=== PATIENT | male | born 1960 | race Caucasian/White ===

== ENCOUNTER 2016-06-11 12:52 | Emergency (ER) | payer SELFPAY ==
[2016-06-11 12:58] VITALS: BP 120/79; PULSE 63; RESP 24; TEMP 97.4; O2SAT 96
--- NOTE | 2016-06-11 13:04 | PD ---
HPI Chief Complaint: chest pain Time Seen by Provider: 13:03 Travel History International Travel<30 days: No Contact w/Intl Traveler<30days: No Traveled to known affect area: No History of Present Illness HPI 56-year-old male with history of CAD, hypertension, stents placement, triple bypass surgery, presents to the emergency department for evaluation of worsening chest pain. Patient was seen and evaluated approximately a week ago per his report. States a stress test this and at that time and was told that they did not see anything. He states that he continues to have this pain. Today it has been almost constant in the left upper chest radiating to his left upper extremity at times with some nausea. No recent illnesses, fever, or chills. No episodes of lightheadedness or diaphoresis. No other symptoms to report. PFSH Past Medical History Cardiac Catheterization: Yes Cardiovascular Problems: Yes Social History Alcohol Use: No Tobacco Use: No Substance Use: No Allergies-Medications (Allergen,Severity, Reaction): Coded Allergies: No Known Allergies (Unverified , 06/11/16) Reported Meds & Prescriptions Reported Meds & Active Scripts Active Reported Buspirone (Buspirone HCl) 10 Mg Tab 10 Mg PO BID Lovastatin 40 Mg Tab 40 Mg PO HS Lisinopril 10 Mg Tab 10 Mg PO DAILY Isosorbide Mononitrate ER (Isosorbide Mononitrate) 30 Mg Srinivasa 30 Mg PO DAILY Furosemide 40 Mg Tab 40 Mg PO DAILY Clopidogrel (Clopidogrel Bisulfate) 75 Mg Tab 75 Mg PO DAILY Aspirin 81 Mg Chew 81 Mg CHEW DAILY Review of Systems Except as stated in HPI: all other systems reviewed are Neg Physical Exam Narrative GENERAL: Well-nourished male patient in no acute distress SKIN: Warm and dry. HEAD: Atraumatic. Normocephalic. EYES: Pupils equal and round. No scleral icterus. No injection or drainage. ENT: No nasal bleeding or discharge. Mucous membranes pink and moist. NECK: Trachea midline. No JVD. CARDIOVASCULAR: Regular rate and rhythm. No murmur appreciated. RESPIRATORY: No accessory muscle use. Clear to auscultation. Breath sounds equal bilaterally. GASTROINTESTINAL: Abdomen soft, non-tender, nondistended. Hepatic and splenic margins not palpable. MUSCULOSKELETAL: No obvious deformities. No clubbing. No cyanosis. No edema. NEUROLOGICAL: Awake and alert. No obvious cranial nerve deficits. Motor grossly within normal limits. Normal speech. PSYCHIATRIC: Appropriate mood and affect; insight and judgment normal. Data Data Last Documented VS Vital Signs Date Time Temp Pulse Resp B/P Pulse Ox O2 Delivery O2 Flow Rate FiO2 06/11/16 13:24 65 18 112/65 97 Room Air 06/11/16 12:58 97.4 Orders Electrocardiogram (06/11/16 ) Basic Metabolic Panel (Bmp) (06/11/16 13:01) Ckmb (Isoenzyme) Profile (06/11/16 13:01) Complete Blood Count With Diff (06/11/16 13:01) Magnesium (Mg) (06/11/16 13:01) Prothrombin Time / Inr (Pt) (06/11/16 13:01) Act Partial Throm Time (Ptt) (06/11/16 13:01) Troponin I (06/11/16 13:01) Lipase (06/11/16 13:01) Chest, Single Ap (06/11/16 13:01) D-Dimer (06/11/16 13:21) Nitroglycerin Sl (Nitrostat Sl) (06/11/16 13:30) Aspirin (Aspirin) (06/11/16 13:30) CKMB (06/11/16 13:25) CKMB% (06/11/16 13:25) Labs Laboratory Tests Test 06/11/16 13:25 White Blood Count 7.5 TH/MM3 Red Blood Count 5.08 MIL/MM3 Hemoglobin 15.0 GM/DL Hematocrit 44.0 % Mean Corpuscular Volume 86.6 FL Mean Corpuscular Hemoglobin 29.4 PG Mean Corpuscular Hemoglobin 34.0 % Concent Red Cell Distribution Width 14.2 % Platelet Count 224 TH/MM3 Mean Platelet Volume 7.5 FL Neutrophils (%) (Auto) 63.4 % Lymphocytes (%) (Auto) 29.7 % Monocytes (%) (Auto) 3.8 % Eosinophils (%) (Auto) 2.6 % Basophils (%) (Auto) 0.5 % Neutrophils # (Auto) 4.8 TH/MM3 Lymphocytes # (Auto) 2.2 TH/MM3 Monocytes # (Auto) 0.3 TH/MM3 Eosinophils # (Auto) 0.2 TH/MM3 Basophils # (Auto) 0.0 TH/MM3 CBC Comment DIFF FINAL Differential Comment Prothrombin Time 10.6 SEC Prothromb Time International 1.0 RATIO Ratio Activated Partial 26.0 SEC Thromboplast Time D-Dimer Quantitative (PE/DVT) 0.29 MG/L FEU Sodium Level 143 MEQ/L Potassium Level 3.4 MEQ/L Chloride Level 108 MEQ/L Carbon Dioxide Level 23.9 MEQ/L Anion Gap 11 MEQ/L Blood Urea Nitrogen 12 MG/DL Creatinine 1.10 MG/DL Estimat Glomerular Filtration 70 ML/MIN Rate Random Glucose 150 MG/DL Calcium Level 8.4 MG/DL Magnesium Level 1.9 MG/DL Total Creatine Kinase 126 U/L Creatine Kinase MB 1.1 NG/ML Troponin I LESS THAN 0.02 NG/ML Lipase 89 U/L MDM Medical Decision Making Medical Screen Exam Complete: Yes Emergency Medical Condition: Yes Medical Record Reviewed: Yes Differential Diagnosis ACS versus chest wall pain versus pleuritic pain versus costochondritis Narrative Course 56-year-old male presents to emergency department for evaluation of chest pain. Workup initiated in triage. Once a medical bed becomes available, patient will be transferred and care was seen by that provider. Condition: Stable Merced Jones Jun 11, 2016 13:03
--- NOTE | 2016-06-11 13:18 | RADRPT ---
EXAM DATE/TIME: 06/11/2016 12:58 [facility] COMPARISON: No previous studies available for comparison. INDICATIONS : Chest pain and short of breath MEDICAL HISTORY : Cardiovascular disease. SURGICAL HISTORY : CABG. ENCOUNTER: Initial ACUITY: 1 day PAIN SCORE: 6/10 LOCATION: Bilateral chest FINDINGS: A single view of the chest demonstrates the lungs to be symmetrically aerated without evidence of mas s, infiltrate or effusion. Sternal wires from previous median sternotomy are noted. The cardiomedia stinal contours are unremarkable. Osseous structures are intact. CONCLUSION: No acute disease. Rico Hart MD FACR on June 11, 2016 at 13:16 Board Certified Radiologist. This report was verified electronically.
[2016-06-11 13:24] VITALS: BP 112/65; PULSE 65; RESP 18; O2SAT 97
[2016-06-11] MEDS ORDERED: ASPI81CH CHEW (13:27)
[2016-06-11] MEDS ORDERED: BUSP10TA PO (13:27)
[2016-06-11] MEDS ORDERED: LOVA40TA PO (13:27)
[2016-06-11] MEDS ORDERED: CLOP75TA PO (13:27)
[2016-06-11] MEDS ORDERED: ISOS30TA3 PO (13:27)
[2016-06-11] MEDS ORDERED: LISI10TA3 PO (13:27)
[2016-06-11] MEDS ORDERED: FURO40TA PO (13:27)
[2016-06-11] MEDS ORDERED: ASPIRIN 325 MG TAB PO ONE (13:30)
[2016-06-11] MEDS ORDERED: NITROGLYCERIN 0.4 MG SL 25 TABS/BTL SL ONE (13:30)
[2016-06-11 13:39] LABS: AUTOMATED NEUTROPHIL # 4.8 TH/MM3 (1.8-7.7); BASOPHIL % 0.5 % (0.0-2.0); EOSINOPHIL # 0.2 TH/MM3 (0-0.4); EOSINOPHIL % 2.6 % (0.0-4.0); HEMO FLAGS DIFF FINAL; LYMPH % 29.7 % (9.0-44.0); LYMPHOCYTE # 2.2 TH/MM3 (1.0-4.8); MEAN CELL VOLUME 86.6 FL (80.0-100.0); MEAN CORPUSCULAR HEMOGLOBIN 29.4 PG (27.0-34.0); MONO % 3.8 % (0.0-8.0); NEUT % 63.4 % (16.0-70.0); PLATELET COUNT 224 TH/MM3 (150-450); RED BLOOD COUNT 5.08 MIL/MM3 (4.50-5.90); RED CELL DISTRIBUTION WIDTH 14.2 % (11.6-17.2); WHITE BLOOD COUNT 7.5 TH/MM3 (4.0-11.0)
[2016-06-11 13:50] LABS: PROTHROMBIN TIME - PATIENT 10.6 SEC (9.8-11.6)
[2016-06-11 13:52] LABS: ANION GAP 11 MEQ/L (5-15); BICARBONATE 23.9 MEQ/L (21.0-32.0); BLOOD UREA NITROGEN 12 MG/DL (7-18); CHLORIDE 108 MEQ/L (98-107); GLOMERULAR FILTRATION RATE 70 ML/MIN (>89); MAGNESIUM 1.9 MG/DL (1.5-2.5); POTASSIUM 3.4 MEQ/L (3.5-5.1); SODIUM (NA) 143 MEQ/L (136-145)
[2016-06-11 13:57] LABS: CREATINE KINASE 126 U/L (39-308)
[2016-06-11 14:09] LABS: CKMB 1.1 NG/ML (0.5-3.6)
--- NOTE | 2016-06-11 14:55 | PD ---
Data Data Last Documented VS Vital Signs Date Time Temp Pulse Resp B/P Pulse Ox O2 Delivery O2 Flow Rate FiO2 06/11/16 13:24 65 18 112/65 97 Room Air 06/11/16 12:58 97.4 Orders Electrocardiogram (06/11/16 ) Basic Metabolic Panel (Bmp) (06/11/16 13:01) Ckmb (Isoenzyme) Profile (06/11/16 13:01) Complete Blood Count With Diff (06/11/16 13:01) Magnesium (Mg) (06/11/16 13:01) Prothrombin Time / Inr (Pt) (06/11/16 13:01) Act Partial Throm Time (Ptt) (06/11/16 13:01) Troponin I (06/11/16 13:01) Lipase (06/11/16 13:01) Chest, Single Ap (06/11/16 13:01) D-Dimer (06/11/16 13:21) Nitroglycerin Sl (Nitrostat Sl) (06/11/16 13:30) Aspirin (Aspirin) (06/11/16 13:30) CKMB (06/11/16 13:25) CKMB% (06/11/16 13:25) Labs Laboratory Tests Test 06/11/16 13:25 White Blood Count 7.5 TH/MM3 Red Blood Count 5.08 MIL/MM3 Hemoglobin 15.0 GM/DL Hematocrit 44.0 % Mean Corpuscular Volume 86.6 FL Mean Corpuscular Hemoglobin 29.4 PG Mean Corpuscular Hemoglobin 34.0 % Concent Red Cell Distribution Width 14.2 % Platelet Count 224 TH/MM3 Mean Platelet Volume 7.5 FL Neutrophils (%) (Auto) 63.4 % Lymphocytes (%) (Auto) 29.7 % Monocytes (%) (Auto) 3.8 % Eosinophils (%) (Auto) 2.6 % Basophils (%) (Auto) 0.5 % Neutrophils # (Auto) 4.8 TH/MM3 Lymphocytes # (Auto) 2.2 TH/MM3 Monocytes # (Auto) 0.3 TH/MM3 Eosinophils # (Auto) 0.2 TH/MM3 Basophils # (Auto) 0.0 TH/MM3 CBC Comment DIFF FINAL Differential Comment Prothrombin Time 10.6 SEC Prothromb Time International 1.0 RATIO Ratio Activated Partial 26.0 SEC Thromboplast Time D-Dimer Quantitative (PE/DVT) 0.29 MG/L FEU Sodium Level 143 MEQ/L Potassium Level 3.4 MEQ/L Chloride Level 108 MEQ/L Carbon Dioxide Level 23.9 MEQ/L Anion Gap 11 MEQ/L Blood Urea Nitrogen 12 MG/DL Creatinine 1.10 MG/DL Estimat Glomerular Filtration 70 ML/MIN Rate Random Glucose 150 MG/DL Calcium Level 8.4 MG/DL Magnesium Level 1.9 MG/DL Total Creatine Kinase 126 U/L Creatine Kinase MB 1.1 NG/ML Troponin I LESS THAN 0.02 NG/ML Lipase 89 U/L MDM Supervised Visit with JULIETTE: Yes Narrative Course I, Dr. Wilson, have reviewed the advance practice practioner's documentation and am in agreement, met with the patient face to face, made the diagnosis, and the medical decision making was done by me. *My assessment and Findings: 56-year-old male with history of CAD with previous three-vessel CABG approximately 2 years ago on the HTN here with complaint of chest pain. Patient has intermittent left-sided chest pain that radiates to the left upper extremity, sharp and squeezing with some nausea. Chronic shortness of breath but states that this is not any worse with exertion than he typically is. No new peripheral edema. Patient has mild pain at this time. Patient moving from [place]. He was in [place] approximately a week ago when he states he had a stress test and cardiac catheterization that were unremarkable and he was discharged home. Patient is in no acute distress on exam, very poor dentition. He has reproducible tenderness to palpation of the left chest wall without ecchymosis, subcutaneous emphysema, crepitus. Regular rate and rhythm, clear to auscultation without peripheral edema. Differential includes atypical chest pain, ACS, GERD, and less likely PE or dissection. Patient's 12-lead EKG is unremarkable, laboratory workup including troponin and d-dimer were negative. Chest x-ray unremarkable. Records were obtained from [facility] in [place] showing abnormal stress test but a cardiac catheterization on 05/31/16 showing LV systolic function normal with EF of 55%. Normal ascending or aorta. Left main with minor luminal irregularities, LAD with minor luminal irregularities. First diagonal with small diffuse disease, right coronary with previous PTCA in the mid RCA patent. Distal RCA with a 40% in-stent restenosis of previous stent. Previous vein grafts normal. Cardiology recommended medical management. I do not feel the patient needs further evaluation here in the emergency department and needs to follow with cardiology as an outpatient to further manage his chest pain medically. Condition: Stable Rubi Wilson MD Jun 11, 2016 14:55
[2016-06-11 16:00] VITALS: BP 118/64; PULSE 68; RESP 16; O2SAT 99
[2016-06-11] MEDS ORDERED: METO25TA3 PO (16:35)
--- NOTE | 2016-06-11 16:40 | PD ---
Physical Exam Date Seen by Provider: Jun 11, 2016 Time Seen by Provider: 16:35 Narrative 56-year-old male that presents to the ED for evaluation of chest pain. Patient was seen previously by Merced ORTIZ. Please refer to her note. Case was signed out to me pending labs and imaging. Medical records were obtained from [facility] where patient was just admitted last week and had a stress test which was abnormal but had a catheter essentially showed no sign of acute . Per cardiology from the hospital the recommended medical treatment and follow-up outpatient. They did not recommend any stenting at the time with minimal disease. Data Data Last Documented VS Vital Signs Date Time Temp Pulse Resp B/P Pulse Ox O2 Delivery O2 Flow Rate FiO2 06/11/16 13:24 65 18 112/65 97 Room Air 06/11/16 12:58 97.4 Orders Electrocardiogram (06/11/16 ) Basic Metabolic Panel (Bmp) (06/11/16 13:01) Ckmb (Isoenzyme) Profile (06/11/16 13:01) Complete Blood Count With Diff (06/11/16 13:01) Magnesium (Mg) (06/11/16 13:01) Prothrombin Time / Inr (Pt) (06/11/16 13:01) Act Partial Throm Time (Ptt) (06/11/16 13:01) Troponin I (06/11/16 13:01) Lipase (06/11/16 13:01) Chest, Single Ap (06/11/16 13:01) D-Dimer (06/11/16 13:21) Nitroglycerin Sl (Nitrostat Sl) (06/11/16 13:30) Aspirin (Aspirin) (06/11/16 13:30) CKMB (06/11/16 13:25) CKMB% (06/11/16 13:25) Labs Laboratory Tests Test 06/11/16 13:25 White Blood Count 7.5 TH/MM3 Red Blood Count 5.08 MIL/MM3 Hemoglobin 15.0 GM/DL Hematocrit 44.0 % Mean Corpuscular Volume 86.6 FL Mean Corpuscular Hemoglobin 29.4 PG Mean Corpuscular Hemoglobin 34.0 % Concent Red Cell Distribution Width 14.2 % Platelet Count 224 TH/MM3 Mean Platelet Volume 7.5 FL Neutrophils (%) (Auto) 63.4 % Lymphocytes (%) (Auto) 29.7 % Monocytes (%) (Auto) 3.8 % Eosinophils (%) (Auto) 2.6 % Basophils (%) (Auto) 0.5 % Neutrophils # (Auto) 4.8 TH/MM3 Lymphocytes # (Auto) 2.2 TH/MM3 Monocytes # (Auto) 0.3 TH/MM3 Eosinophils # (Auto) 0.2 TH/MM3 Basophils # (Auto) 0.0 TH/MM3 CBC Comment DIFF FINAL Differential Comment Prothrombin Time 10.6 SEC Prothromb Time International 1.0 RATIO Ratio Activated Partial 26.0 SEC Thromboplast Time D-Dimer Quantitative (PE/DVT) 0.29 MG/L FEU Sodium Level 143 MEQ/L Potassium Level 3.4 MEQ/L Chloride Level 108 MEQ/L Carbon Dioxide Level 23.9 MEQ/L Anion Gap 11 MEQ/L Blood Urea Nitrogen 12 MG/DL Creatinine 1.10 MG/DL Estimat Glomerular Filtration 70 ML/MIN Rate Random Glucose 150 MG/DL Calcium Level 8.4 MG/DL Magnesium Level 1.9 MG/DL Total Creatine Kinase 126 U/L Creatine Kinase MB 1.1 NG/ML Troponin I LESS THAN 0.02 NG/ML Lipase 89 U/L [facility] Medical Record Reviewed: Yes Supervised Visit with JULIETTE: No Interpretation(s) CBC & BMP Diagram 06/11/16 13:25 Troponin and CK-MB negative. Coags within normal limits. D-dimer negative. EKG shows sinus rhythm with no sign of acute ischemia or arrhythmia read by me and attending. Chest x-ray negative for acute disease Differential Diagnosis Chest pain versus atypical chest pain versus CAD versus PE Narrative Course 56-year-old male that presents to the ED for evaluation of chest pain. Patient was properly examined and was found to have signs and symptoms consistent with chest pain. Concerning for cardiac chest pain. Patient he just had a stress test as well as psych heart Per patient done in [facility] in [place]. We got medical records from the facility and apparently patient had a With no need for stenting. Arteries were patent. My attending and I evaluated the records as well as the laboratory findings and we do not recommend any admission as patient does have a heart catheter last week that was essentially unremarkable. Recommendation at that time was for medical management. Patient was reassured. Patient likely having a typical chest pain. Patient agrees to follow-up outpatient. Patient was given a prescription for metoprolol which apparently was prescribed to him at the different facility but per patient he is not taking at this time. See ED worsening symptoms. Diagnosis Primary Impression: Chest pain in adult Patient Instructions: General Instructions Additional Instruction: Follow up with medical physiologist. Your labs and imaging here were essentially unremarkable. We reviewed your medical records from pervious hospitalization and your coronary arteries were found to be patent at that time. See ED worsening symptoms. Continue taking medications as prescribed. Med/Other Pt SpecificInfo: Prescription(s) given Scripts Metoprolol Tartrate 25 Mg Tab12.5 Mg PO BID #60 TAB Ref 0 Prov:Rubi Wilson MD 06/11/16 Disposition: 01 DISCHARGE HOME Condition: Stable Cortes Manley Jun 11, 2016 16:40
--- NOTE | 2016-06-12 18:19 | EKG ---
Date Performed: 06/11/2016 Time Performed: 13:27:57 PTAGE: 56 years EKG: Sinus rhythm NORMAL ECG NO PREVIOUS TRACING DOCTOR: Guzman Kilgore Interpretating Date/Time 06/12/2016 18:13:45
== END 2016-06-11 17:15 | disposition home or self-care (01) ==
LOC: NEPE 12:52
DX: R07.9 Chest pain, unspecified (principal); I25.10 Atherosclerotic heart disease of native coronary artery without angina pectoris; I10 Essential (primary) hypertension; Z95.5 Presence of coronary angioplasty implant and graft; Z79.02 Long term (current) use of antithrombotics/antiplatelets; Z79.82 Long term (current) use of aspirin; Z79.899 Other long term (current) drug therapy
CPT/HCPCS: 71010; 80048; 82550; 82552; 83690; 83735; 84484; 85025; 85379; 85610; 85730; 93005